=== PATIENT | male | born 1950 | race Asian ===

== ENCOUNTER 2018-06-11 19:24 | Emergency (ER) | payer MEDICARE, MEDICAID ==
[~2018-06-11] VITALS: Ht 162.6 cm; Wt 71.2 kg
[2018-06-11 19:32] VITALS: BP 146/80
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
[2018-06-11 19:46] VITALS: BP 134/75
[2018-06-11] MEDS ORDERED: IBUPROFEN600 MG ORAL (19:54)
--- NOTE | 2018-06-11 20:15 | Diagnostic Imaging Report ---
EXAM: XR Chest, 1 View CLINICAL HISTORY: CP TECHNIQUE: Frontal view of the chest. COMPARISON: No relevant prior studies available. FINDINGS: Lungs: Unremarkable. No consolidation. Pleural space: Unremarkable. No pneumothorax. Heart: Unremarkable. No cardiomegaly. Mediastinum: Unremarkable. Bones/joints: Unremarkable. IMPRESSION: Normal chest x-ray.
== END 2018-06-11 20:38 | disposition home or self-care (01) ==
LOC: EMR 19:51
DX: S20.219A Contusion of unspecified front wall of thorax, initial encounter (principal); V43.52XA Car driver injured in collision with other type car in traffic accident, initial encounter; Y92.488 Other paved roadways as the place of occurrence of the external cause; E11.9 Type 2 diabetes mellitus without complications; I10 Essential (primary) hypertension; R07.9 Chest pain, unspecified
CPT/HCPCS: 71045; 99283